=== PATIENT | male | born 1975 | race Caucasian/White ===

== ENCOUNTER 2018-03-15 07:25 | Inpatient (IN) | payer OTHER ==
[~2018-03-15] VITALS: Ht 170.2 cm; Wt 101.6 kg
[2018-03-15] VITALS (12 sets, daily range): BP systolic 133–154
[2018-03-15] MEDS ORDERED: cefTRIAXone 1 GM IVPB PREMIX 50 ML IV ONE (07:30)
[2018-03-15] MEDS ORDERED: NACL 0.9% 1,000 ML IV ONE ×2 (07:30→11:30)
[2018-03-15] MEDS ORDERED: MORPHINE 2 MG/ML INJ. SYRINGE IVP ONE (07:45)
[2018-03-15] MEDS ORDERED: METOCLOPRAMIDE HCL 10 MG/2 ML VIAL IVP ONE (07:45)
[2018-03-15] MEDS ORDERED: INSULIN REGULAR, HUMAN 10 UNITS/0.1 ML INJ IVP ONE (07:45)
[2018-03-15] MEDS ORDERED: FAMOTIDINE PF 20 MG/2 ML VIAL IVP ONE (07:45)
[2018-03-15] MEDS ORDERED: NACL 0.9% 3,000 ML IV ONE (07:45)
[2018-03-15] MEDS ORDERED: DIPHENHYDRAMINE INJ 50 MG/ML VIAL IVP ONE (07:45)
[2018-03-15 09:17] LABS: ACETONE, SERUM NEGATIVE (NEGATIVE)
[2018-03-15 09:22] LABS: BILIRUBIN,URINE 1+ (NEGATIVE); BLOOD, URINE 2+ (NEGATIVE); CLARITY/URINE CLEAR (CLEAR); COLOR,URINE YELLOW (YELLOW); GLUCOSE,URINE 2+ (NEGATIVE); KETONES,URINE 3+ (NEGATIVE); LEUKOCYTE ESTERASE ,URINE NEGATIVE (NEGATIVE); NITRITE, URINE NEGATIVE (NEGATIVE); PROTEIN URINE 3+ (NEGATIVE); UROBILINOGEN,URINE 0.2 (0.2-1.0)
[2018-03-15 09:33] LABS: CHLORIDE 93 mmol/L (98-107); POTASSIUM 4.5 mmol/L (3.5-5.1); SODIUM SERUM 130 mmol/L (136-145)
[2018-03-15 09:35] LABS: ANION GAP 30 (5-15)
[2018-03-15 09:36] LABS: CALCIUM 9.2 mg/dL (8.4-11.0); GFR AFRICAN AMERICAN 47 mL/min (>90); GLUCOSE 498 mg/dL (70-99); UREA NITROGEN, BLOOD 17 mg/dL (8-21)
[2018-03-15 09:52] LABS: ALBUMIN 4.3 g/dL (3.4-4.8); TOTAL BILIRUBIN 0.5 mg/dL (0.0-1.0)
[2018-03-15 09:56] LABS: INR 0.9 (0.80-1.20); PROTHROMBIN TIME 9.6 SECS (9.5-12.5)
[2018-03-15 10:17] LABS: HEMATOCRIT 41.1 % (36-54); MEAN CORPUSCULAR VOLUME 90 fL (79.0-98.0); RED BLOOD CELL COUNT(AUTO) 4.59 MIL/uL (4.2-6.2); WHITE BLOOD COUNT (AUTO) 18.6 K/uL (4.8-10.8)
[2018-03-15 10:18] LABS: MEAN CORPUSCULAR HEMOGLOBIN 35 pg (27-31); MEAN CORPUSCULAR HGB CONC 39 % (32-36); PLATELET COUNT (AUTO) 333 K/uL (130-430); RED CELL DISTRIBUTION WIDTH 13.3 % (9.0-15.0)
[2018-03-15 11:03] LABS: TRIGLYCERIDES 1792 mg/dL (30-150)
[2018-03-15 11:05] LABS: LIPASE 4464 U/L (73-393)
[2018-03-15 11:16] LABS: BACTERIA,URINE FEW /HPF (None Seen); WBC,URINE 0-3 /HPF (0-3)
[2018-03-15 11:17] LABS: COARSE GRANULAR CASTS,URINE 0-10 /LPF (None Seen); FINE GRANULAR CASTS,URINE 0-10 /LPF (None Seen); MUCUS,URINE 2+ /LPF (None Seen); YEAST,URINE None Seen /HPF (None Seen)
[2018-03-15] MEDS ORDERED: SODIUM BICARBONATE 8.4% JECT 50 MEQ/50 ML SYRINGE IVP ONE ×3 (11:30→23:00)
[2018-03-15 11:46] LABS: BAND % (MANUAL) 12 % (0-6); BASOPHILS % (MANUAL) 0 % (0-2); EOSINOPHILS % (MANUAL) 0 % (0-7); LYMPHOCYTES % (MANUAL) 12 % (20-46); MONOCYTES % (MANUAL) 3 % (0-11); PROMYELOCYTES % 2 % (0-0)
[2018-03-15 12:33] LABS: BARBITURATE, URINE NEGATIVE (NEG <=200); BENZODIAZEPINE, URINE NEGATIVE (NEG <=150); CANNABINOID, URINE NEGATIVE (NEG <=50); COCAINE, URINE NEGATIVE (NEG <=150); METHAMPHETAMINES SCREEN,URINE NEGATIVE (NEG <=500); OPIATE, URINE NEGATIVE (NEG <=100); PHENCYCLIDINE SCREEN,URINE NEGATIVE (NEG <=25); UR TRICYCLIC ANTIDEPRESSANTS NEGATIVE (NEG <=300); URINE AMPHETAMINE NEGATIVE (NEG <=500); URINE METHADONE NEGATIVE (NEG <=200); URINE OXYCODONE SCREEN NEGATIVE (NEG <=100); URINE PROPOXYPHENE SCREEN NEGATIVE (NEG <=300)
[2018-03-15] MEDS ORDERED: DEXTROSE 50% JECT 50 ML DISP.SYRIN IVP PRN (12:45)
[2018-03-15] MEDS ORDERED: INSULIN REGULAR, HUMAN 100 UNITS in NS 99 ML IV PRN ×8 (12:45→22:15)
[2018-03-15] MEDS ORDERED: NACL 0.9% 1,000 ML IV SCH ×2 (13:24→14:45)
[2018-03-15 13:26] LABS: ALANINE AMINOTRANSFERASE 44 U/L (12-78)
[2018-03-15] MEDS ORDERED: ACETAMINOPHEN 650 MG SUPP.RECT RC PRN (13:30)
[2018-03-15 13:37] LABS: ANION GAP 26 (5-15); CALCIUM 7.6 mg/dL (8.4-11.0); CHLORIDE 100 mmol/L (98-107); CREATININE 1.46 mg/dL (0.55-1.30); GLUCOSE 347 mg/dL (70-99); POTASSIUM 4.9 mmol/L (3.5-5.1); SODIUM SERUM 134 mmol/L (136-145); UREA NITROGEN, BLOOD 12 mg/dL (8-21)
[2018-03-15 13:44] LABS: ALCOHOL, BLOOD < 3 mg/dL (<10); GFR AFRICAN AMERICAN 68 mL/min (>90)
[2018-03-15 14:12] LABS: BASOPHILS # (AUTO) 0.2 K/uL (0.0-0.2); EOSINOPHILS % (AUTO) 0.1 % (0.0-4.0); HEMATOCRIT 45.6 % (36-54); HEMOGLOBIN 16.3 g/dL (14.0-18.0); LYMPHOCYTES # (AUTO) 1.9 K/uL (1.0-5.5); LYMPHOCYTES % (AUTO) 10.3 % (20.5-51.5); MEAN CORPUSCULAR HEMOGLOBIN 32 pg (27-31); MEAN CORPUSCULAR HGB CONC 36 % (32-36); MEAN CORPUSCULAR VOLUME 89 fL (79.0-98.0); MONOCYTES # (AUTO) 0.8 K/uL (0.0-1.0); MONOCYTES % (AUTO) 4.5 % (1.7-9.3); NEUTROPHILS # (AUTO) 15.9 K/uL (1.8-7.7); NEUTROPHILS % (AUTO) 84.1 % (40.0-70.0); RED BLOOD CELL COUNT(AUTO) 5.14 MIL/uL (4.2-6.2); RED CELL DISTRIBUTION WIDTH 13.6 % (9.0-15.0)
[2018-03-15 14:18] LABS: WHITE BLOOD COUNT (AUTO) 16.6 K/uL (4.8-10.8)
[2018-03-15 14:19] LABS: PLATELET COUNT (AUTO) 293 K/uL (130-430)
[2018-03-15] MEDS ORDERED: PANTOPRAZOLE SODIUM 40 MG/VIAL (PROTONIX) IVP ONE (14:45)
[2018-03-15] MEDS ORDERED: LEVOFLOXACIN 500 MG/D5W 100 ML IV ONE (15:00)
[2018-03-15] MEDS: ONDANSETRON HCL 4 MG/2 ML VIAL IVP PRN (16:24)
[2018-03-15 17:22] LABS: ANION GAP 23 (5-15); CALCIUM 7.4 mg/dL (8.4-11.0); CHLORIDE 100 mmol/L (98-107); CREATININE 1.29 mg/dL (0.55-1.30); GLUCOSE 303 mg/dL (70-99); PHOSPHORUS 2.5 mg/dL (2.7-4.5); POTASSIUM 4.2 mmol/L (3.5-5.1); SODIUM SERUM 130 mmol/L (136-145); UREA NITROGEN, BLOOD 10 mg/dL (8-21)
[2018-03-15 17:24] LABS: GFR AFRICAN AMERICAN 78 mL/min (>90)
[2018-03-15] MEDS: KCL 20 mEq in 0.45% NS 1000 mL 1,000 ML IV SCH ×2 (18:18→23:08)
[2018-03-15] MEDS: MORPHINE 2 MG/ML INJ. SYRINGE IVP PRN (19:48)
[2018-03-15 20:54] LABS: CREATININE 1.23 mg/dL (0.55-1.30); PHOSPHORUS 2.1 mg/dL (2.7-4.5); POTASSIUM 4.2 mmol/L (3.5-5.1)
[2018-03-15] MEDS ORDERED: SODIUM BICARBONATE 8.4% JECT 50 MEQ/50 ML SYRINGE ONE (22:03)
[2018-03-16] VITALS (24 sets, daily range): BP systolic 119–146
[2018-03-16] MEDS: ONDANSETRON HCL 4 MG/2 ML VIAL IVP PRN ×2 (00:11→20:01)
[2018-03-16] MEDS: MORPHINE 2 MG/ML INJ. SYRINGE IVP PRN ×5 (00:12→20:02)
[2018-03-16 01:28] LABS: ANION GAP 23 (5-15); CALCIUM 7.7 mg/dL (8.4-11.0); CHLORIDE 101 mmol/L (98-107); CREATININE 1.08 mg/dL (0.55-1.30); GLUCOSE 250 mg/dL (70-99); PHOSPHORUS 1.6 mg/dL (2.7-4.5); POTASSIUM 3.8 mmol/L (3.5-5.1); SODIUM SERUM 130 mmol/L (136-145); UREA NITROGEN, BLOOD 6 mg/dL (8-21)
[2018-03-16 01:29] LABS: GFR AFRICAN AMERICAN 96 mL/min (>90)
[2018-03-16] MEDS: KCL 20 mEq in 0.45% NS 1000 mL 1,000 ML IV SCH ×6 (03:59→22:11)
[2018-03-16 07:23] LABS: CALCIUM 7.8 mg/dL (8.4-11.0); CREATININE 0.99 mg/dL (0.55-1.30); PHOSPHORUS 1.7 mg/dL (2.7-4.5); POTASSIUM 4.1 mmol/L (3.5-5.1); THYROID STIMULATING HORMONE 0.46 uIu/mL (0.34-4.82)
[2018-03-16 08:31] LABS: HEMOGLOBIN 11.4 g/dL (14.0-18.0); RED BLOOD CELL COUNT(AUTO) 3.96 MIL/uL (4.2-6.2); WHITE BLOOD COUNT (AUTO) 19.8 K/uL (4.8-10.8)
[2018-03-16 08:32] LABS: MEAN CORPUSCULAR HEMOGLOBIN 29 pg (27-31); MEAN CORPUSCULAR VOLUME 94 fL (79.0-98.0)
[2018-03-16 08:33] LABS: MEAN CORPUSCULAR HGB CONC 31 % (32-36); PLATELET COUNT (AUTO) 154 K/uL (130-430); RED CELL DISTRIBUTION WIDTH 14.6 % (9.0-15.0)
[2018-03-16] MEDS ORDERED: POTASSIUM CHLORIDE 20 MEQ in NS 250 ML IV ONE (09:00)
[2018-03-16] MEDS ORDERED: LEVOFLOXACIN 500 MG/D5W 100 ML IV SCH (09:00)
[2018-03-16] MEDS: PANTOPRAZOLE SODIUM 40 MG/VIAL (PROTONIX) IVP SCH (09:15)
[2018-03-16] MEDS ORDERED: D5/0.45 NS 1,000 ML IV PRN ×2 (10:15→12:00)
[2018-03-16 10:39] LABS: CALCIUM 8.6 mg/dL (8.4-11.0); CREATININE 1.1 mg/dL (0.55-1.30); PHOSPHORUS 1.5 mg/dL (2.7-4.5)
[2018-03-16 10:53] LABS: POTASSIUM 3.9 mmol/L (3.5-5.1)
[2018-03-16 12:33] LABS: BAND % (MANUAL) 14 % (0-6); LYMPHOCYTES % (MANUAL) 10 % (20-46)
[2018-03-16 12:34] LABS: BASOPHILS % (MANUAL) 0 % (0-2); EOSINOPHILS % (MANUAL) 0 % (0-7); MONOCYTES % (MANUAL) 5 % (0-11)
[2018-03-16] MEDS ORDERED: SODIUM BICARBONATE 8.4% JECT 50 MEQ/50 ML SYRINGE ONE (12:50)
[2018-03-16] MEDS: SODIUM BICARBONATE 8.4% JECT 50 MEQ/50 ML SYRINGE IV SCH ×4 (12:51→13:48)
[2018-03-16] MEDS: MEROPENEM 1 GM in NS 100 ML IV SCH ×2 (14:21→22:12)
[2018-03-16] MEDS ORDERED: SODIUM BICARBONATE 8.4% JECT 50 MEQ/50 ML SYRINGE IV SCH (15:00)
[2018-03-16] MEDS ORDERED: K PHOS IV ONE ×2 (17:30→17:48)
[2018-03-16] MEDS ORDERED: NACL 0.45% IV ONE (17:30)
[2018-03-16] MEDS ORDERED: NS 0.45% IV ONE (17:48)
[2018-03-16] MEDS ORDERED: COMMUNICATION ORDER XX PRN (19:45)
[2018-03-16 20:16] LABS: CALCIUM 8.1 mg/dL (8.4-11.0); CREATININE 0.86 mg/dL (0.55-1.30); POTASSIUM 3.4 mmol/L (3.5-5.1)
[2018-03-16 20:19] LABS: PHOSPHORUS 1.6 mg/dL (2.7-4.5)
[2018-03-16] MEDS ORDERED: KCL 20 mEq in 100 mL (PREMIX) 100 ML IV ONE (21:02)
[2018-03-17] VITALS (21 sets, daily range): BP systolic 114–141
[2018-03-17] MEDS: KCL 20 mEq in 0.45% NS 1000 mL 1,000 ML IV SCH ×3 (02:59→11:54)
[2018-03-17] MEDS: SODIUM BICARBONATE 8.4% JECT 50 MEQ/50 ML SYRINGE IV SCH (02:59)
[2018-03-17 03:04] LABS: CALCIUM 8.2 mg/dL (8.4-11.0); CREATININE 0.98 mg/dL (0.55-1.30); PHOSPHORUS 1.2 mg/dL (2.7-4.5); POTASSIUM 3.4 mmol/L (3.5-5.1)
[2018-03-17] MEDS: MEROPENEM 1 GM in NS 100 ML IV SCH ×2 (06:02→14:04)
[2018-03-17] MEDS: SODIUM BICARBONATE 8.4% JECT 50 MEQ/50 ML SYRINGE IVP SCH ×5 (07:59→11:55)
[2018-03-17] MEDS: PANTOPRAZOLE SODIUM 40 MG/VIAL (PROTONIX) IVP SCH (08:00)
[2018-03-17] MEDS ORDERED: SODIUM BICARBONATE 8.4% JECT 50 MEQ/50 ML SYRINGE ONE (08:00)
[2018-03-17] MEDS: MORPHINE 2 MG/ML INJ. SYRINGE IVP PRN ×2 (08:01→14:05)
[2018-03-17 08:21] LABS: HEMATOCRIT 37.1 % (36-54); HEMOGLOBIN 12.5 g/dL (14.0-18.0); MEAN CORPUSCULAR HEMOGLOBIN 30 pg (27-31); MEAN CORPUSCULAR HGB CONC 34 % (32-36); MEAN CORPUSCULAR VOLUME 89 fL (79.0-98.0); PLATELET COUNT (AUTO) 196 K/uL (130-430); RED BLOOD CELL COUNT(AUTO) 4.18 MIL/uL (4.2-6.2); WHITE BLOOD COUNT (AUTO) 7.8 K/uL (4.8-10.8)
[2018-03-17 08:50] LABS: ALBUMIN 2.3 g/dL (3.4-4.8); BILIRUBIN,DIRECT 0.1 mg/dL (0.0-0.3); CALCIUM 7.8 mg/dL (8.4-11.0); CREATININE 0.72 mg/dL (0.55-1.30); POTASSIUM 3.4 mmol/L (3.5-5.1); TOTAL BILIRUBIN 0.8 mg/dL (0.0-1.0)
[2018-03-17 09:42] LABS: BASOPHILS % (MANUAL) 0 % (0-2); EOSINOPHILS % (MANUAL) 0 % (0-7); LYMPHOCYTES % (MANUAL) 9 % (20-46); MONOCYTES % (MANUAL) 2 % (0-11)
[2018-03-17] MEDS ORDERED: POTASSIUM CHLORIDE 20 MEQ/PKT PACKET PO ONE ×2 (11:00→16:00)
[2018-03-17] MEDS ORDERED: K PHOS 40 MM in NS 250 ML IV ONE (12:00)
[2018-03-17 14:29] LABS: CALCIUM 8.2 mg/dL (8.4-11.0); POTASSIUM 3.4 mmol/L (3.5-5.1)
[2018-03-17 14:30] LABS: CREATININE 0.82 mg/dL (0.55-1.30)
[2018-03-17 14:33] LABS: PHOSPHORUS 0.6 mg/dL (2.7-4.5)
[2018-03-17] MEDS ORDERED: INSULIN ASPART 100 UNITS/ML, 10 ML VIAL SUBCUT ONE (15:15)
[2018-03-17] MEDS ORDERED: INSULIN ASPART 100 UNITS/ML, 10 ML VIAL (NovoLOG) SUBCUT PRN (15:15)
[2018-03-17] MEDS ORDERED: GEMFIBROZIL 600 MG TABLET (LOPID) PO SCH (21:00)
[2018-03-18] MEDS ORDERED: INSULIN ASPART 100 UNITS/ML, 10 ML VIAL SUBCUT SCH (07:00)
== END 2018-03-17 20:10 | disposition short-term general hospital (02) | DRG 637 ==
LOC: SED 07:25 → SIC 12:36
PROVIDERS: ADMIT Internal Medicine; ATTEND Internal Medicine
DX: E11.10 Type 2 diabetes mellitus with ketoacidosis without coma (principal); K85.81 Other acute pancreatitis with uninfected necrosis; N17.0 Acute kidney failure with tubular necrosis; E87.1 Hypo-osmolality and hyponatremia; E87.2 Acidosis; R65.10 Systemic inflammatory response syndrome (SIRS) of non-infectious origin without acute organ dysfunction; E78.1 Pure hyperglyceridemia; E78.5 Hyperlipidemia, unspecified; K81.9 Cholecystitis, unspecified; E86.0 Dehydration; F32.9 Major depressive disorder, single episode, unspecified; E11.22 Type 2 diabetes mellitus with diabetic chronic kidney disease; N18.9 Chronic kidney disease, unspecified; Z83.3 Family history of diabetes mellitus; Z87.891 Personal history of nicotine dependence; Z91.19 Patient's noncompliance with other medical treatment and regimen
CPT/HCPCS: 36415; 36600; 71045; 74018; 76700-TC; 80048; 80053; 80061; 80076; 80307; 81000-TC; 82009-TC; 82150-TC; 82803-TC; 82962; 83036; 83605; 83690-TC; 83735-TC; 83880; 84100-TC; 84443-TC; 84478-TC; 84484; 85007; 85025; 85027; 85610-TC; 85730-TC; 87040-TC; 87081; 87086; 93005; 96361; 96365; 96375; 99291; 99292; C9113; G0482; J0696; J1200; J1815; J1956; J2185; J2270; J2405; J2765; J3480; J3490; J7030; J7050